=== PATIENT | male | born 1955 | race Caucasian/White ===

== ENCOUNTER 2023-02-10 08:44 | Day surgery (SDC) | payer OTHER, SELFPAY ==
[2023-02-07 14:49] VITALS: BMI 22.3
--- NOTE | 2023-02-09 09:58 | HO.ANESPROP2 ---
Documented by User: Daly Dang NP 02/09/23 09:58 HPI - Anesthesia Eval Consult details Narrative: 67yo M for Colonoscopy PMFSH Past Medical History Medical History Hx of melanoma of skin Renal cell carcinoma Back pain Diabetes Sleep apnea Gout COPD (chronic obstructive pulmonary disease) Hyperlipidemia GERD (gastroesophageal reflux disease) Surgical History Surgical History Hx of colectomy History of right nephrectomy Hx of oral surgery Hx of arthroscopy of left knee History of esophagogastroduodenoscopy (EGD) H/O colonoscopy Social History Social History (Updated 02/07/23 @ 14:44 by Sara Vuong RN) Patient Tobacco Use Status: Current everyday Tobacco user Tobacco use type: Cigarette Cigarettes Per Day: 30 Smoked in Last 30 Days: Yes Patient Interested in Nicotine Replacement: No Are you DNR?: No Advance Directives: No Advance Directives Information Provided: Yes Nutrition Risks: No Nutritional Risk Meds Allergies Allergy/AdvReac Type Severity Reaction Status Date / Time aspirin [ASA] Allergy Intermediate Nose Bleed Verified 02/10/23 09:10 tamsulosin Allergy Unknown Unknown Verified 02/10/23 09:10 Home Medications Medication Instructions Recorded Confirmed Last Taken Type albuterol sulfate 90 mcg/actuation 2 puff inhalation Q4-6H PRN 02/07/23 02/07/23 Unknown History aerosol inhaler (Ventolin HFA) Wheezing allopurinol 300 mg tablet 300 mg PO DAILY 02/07/23 02/07/23 Unknown History amlodipine 2.5 mg-benazepril 10 mg 1 cap PO DAILY 02/07/23 02/07/23 Unknown History capsule atenolol 100 mg tablet 100 mg PO DAILY 02/07/23 02/07/23 02/10/23 History cholecalciferol (vitamin D3) 50 50 mcg PO DAILY 02/07/23 02/07/23 Unknown History mcg (2,000 unit) tablet (Vitamin D3) cyclobenzaprine 10 mg tablet 10 mg PO BEDTIME PRN Muscle Spasm 02/07/23 02/07/23 Unknown History metformin 500 mg tablet 500 mg PO QPM 02/07/23 02/07/23 Unknown History multivitamin 1 tab PO DAILY 02/07/23 02/07/23 Unknown History omeprazole 20 mg capsule,delayed 20 mg PO DAILY 02/07/23 02/07/23 Unknown History release oxycodone-acetaminophen 5 mg-325 1 tab PO DAILY PRN Pain 02/07/23 02/07/23 Unknown History mg tablet (Percocet) rosuvastatin 40 mg tablet 40 mg PO DAILY 02/07/23 02/07/23 Unknown History Exam Exam Date and Time: February 09, 2023 0958 Height,Weight and Vital Signs: Height 5 ft 11 in Weight 72.575 kg Assessment and Plan Assessment Anesthesia Assessment: Chart Reviewed Documented by User: Brayan Dixon MD 02/10/23 09:26 [facility] Past Medical History Medical History Hx of melanoma of skin Renal cell carcinoma Back pain Diabetes Sleep apnea Gout COPD (chronic obstructive pulmonary disease) Hyperlipidemia GERD (gastroesophageal reflux disease) Family History Family history of problems with anesthesia: No Surgical History Surgical History Hx of colectomy History of right nephrectomy Hx of oral surgery Hx of arthroscopy of left knee History of esophagogastroduodenoscopy (EGD) H/O colonoscopy History of Problems with Anesthesia: No Social History Social History (Updated 02/07/23 @ 14:44 by Sara Vuong RN) Patient Tobacco Use Status: Current everyday Tobacco user Tobacco use type: Cigarette Cigarettes Per Day: 30 Smoked in Last 30 Days: Yes Patient Interested in Nicotine Replacement: No Are you DNR?: No Advance Directives: No Advance Directives Information Provided: Yes Nutrition Risks: No Nutritional Risk Meds Allergies Allergy/AdvReac Type Severity Reaction Status Date / Time aspirin [ASA] Allergy Intermediate Nose Bleed Verified 02/10/23 09:10 tamsulosin Allergy Unknown Unknown Verified 02/10/23 09:10 Home Medications Medication Instructions Recorded Confirmed Last Taken Type albuterol sulfate 90 mcg/actuation 2 puff inhalation Q4-6H PRN 02/07/23 02/07/23 Unknown History aerosol inhaler (Ventolin HFA) Wheezing allopurinol 300 mg tablet 300 mg PO DAILY 02/07/23 02/07/23 Unknown History amlodipine 2.5 mg-benazepril 10 mg 1 cap PO DAILY 02/07/23 02/07/23 Unknown History capsule atenolol 100 mg tablet 100 mg PO DAILY 02/07/23 02/07/23 02/10/23 History cholecalciferol (vitamin D3) 50 50 mcg PO DAILY 02/07/23 02/07/23 Unknown History mcg (2,000 unit) tablet (Vitamin D3) cyclobenzaprine 10 mg tablet 10 mg PO BEDTIME PRN Muscle Spasm 02/07/23 02/07/23 Unknown History metformin 500 mg tablet 500 mg PO QPM 02/07/23 02/07/23 Unknown History multivitamin 1 tab PO DAILY 02/07/23 02/07/23 Unknown History omeprazole 20 mg capsule,delayed 20 mg PO DAILY 02/07/23 02/07/23 Unknown History release oxycodone-acetaminophen 5 mg-325 1 tab PO DAILY PRN Pain 02/07/23 02/07/23 Unknown History mg tablet (Percocet) rosuvastatin 40 mg tablet 40 mg PO DAILY 02/07/23 02/07/23 Unknown History Exam Airway Mallampati Class: II TM Dist: >3cm Neck ROM: Full Denture: Upper and Lower Assessment and Plan Assessment Anesthesia Assessment: Anesthesia Plan Discussed Final Anesthetic Review Family History of Problems with Anesthesia: No History of Problems with Anesthesia: No NPO: Yes ASA Class: III Final Preanesthetic Review: No Changes in Pt Med Stat, Meds/Allgs Chart Reviewed, Consent Obtained/Reviewed and Anes Risks/Benef Reviewed Patient Risk: Intermediate Procedure Risk: Low Anesthetic Plan Anesthetic Plan: MAC: Disposition: Standard PACU
[2023-02-10] MEDS: Lactated Ringers 1,000 ML 100 ML IVCONT (09:23)
[2023-02-10 09:31] VITALS: BP 150/85; PULSE 68; RESP 18; TEMP 36.6; O2SAT 98
[2023-02-10 09:32] LABS: Glucose, Whole Blood 118 mg/dL (60-115)
[2023-02-10] MEDS: Albuterol Sulfate (0.083%) 2.5 MG/3 ML VIAL.NEB INHALE (09:34)
[2023-02-10 09:35] VITALS: RESP 18; O2SAT 96
--- NOTE | 2023-02-10 10:51 | MHC.SHP ---
Pre-Procedural Eval Section A Date of Service: 02/10/23 Section B Chief Complaint: Encounter for screening for malignant neoplasm of Details of Present Illness: see H&p NO CHANGES Relevant Family History (Specify if Yes): No Relevant Social History: None Present Medications: see Short Stay Collaborative assessment Medical History: No relevant PMH History of Previous Operations: Relevant previous surgery/procedure and date(s) Allergies: Allergies Allergy/AdvReac Type Severity Reaction Status Date / Time aspirin [ASA] Allergy Intermediate Nose Bleed Verified 02/10/23 09:10 tamsulosin Allergy Unknown Unknown Verified 02/10/23 09:10 Review of Systems Sugical H&P ROS: Negative: Constitution, Cardiovascular, Respiratory, Neurological, Psychiatric, Hem-Onc, Allergic/Immunologic, Gastrointestinal, Genitourinary, Musculoskeletal, Integumentary, Endocrine and Eyes/Ears/Nose/Throat Exam Surgical H&P Exam: Normal: HEENT, Normal: Heart, Normal: Lungs, Normal: Extremities, Normal: Abdomen, Normal: Skin and Normal: Neurological Plan Diagnosis/Plan: Unchanged I have reviewed the history and physical and performed a pertinent physical examination on my patient. No changes have occurred unless specified. Time Spent With Patient Time: Total time managing care of this patient today ____ minutes.
--- NOTE | 2023-02-10 10:52 | PM.OP ---
Brief Operative Note Date of Service: 02/10/23 Pre-op diagnosis: SCREENING Post-op diagnosis: same Procedure: COLONOSCOPY Surgeon: Bassam Ogden MD Anesthesia: MAC Was an Hydraulic Technician used for this Procedure?: No Estimated blood loss (mL): 3 Pathology: other Condition: stable Disposition: PACU
[2023-02-10 10:55] VITALS: BP 80/49; PULSE 68; RESP 16; TEMP 36.2; O2SAT 93
[2023-02-10 11:10] VITALS: BP 98/62; PULSE 64; RESP 18; TEMP 36.4; O2SAT 94
--- NOTE | 2023-02-10 11:17 | OP_ITS ---
DATE OF SERVICE: 02/10/2023 SURGEON: Bassam Ogden MD INDICATIONS: Colon cancer screening and prior history of colon polyps. PREOPERATIVE DIAGNOSIS: POSTOPERATIVE DIAGNOSIS: PROCEDURE PERFORMED: Colonoscopy to the neoterminal ileum with biopsy. ESTIMATED BLOOD LOSS: COMPLICATIONS: ANESTHESIA: Monitored anesthesia care. ASSISTANTS: SPECIMENS: DESCRIPTION OF PROCEDURE: History and physical performed. The risks and benefits of the procedure were explained to the patient. Informed consent was obtained. The patient is placed in the left lateral decubitus position. A digital rectal exam was performed and was found to be normal. The Olympus pediatric video colonoscope was introduced into the rectum and advanced to the ileocolonic anastomosis. Examination was performed. The scope was removed. He tolerated the procedure well and was taken to recovery room in stable condition. FINDINGS: The neoterminal ileum showed changes of ileitis, which could be reactive. There was no stricturing. There was no evidence of a mass. Biopsies were obtained from the ileum. The ileocolonic anastomosis was widely patent between 70 and 80 cm. There were some elizabeth visible at the anastomosis. The visualized colonic mucosa was otherwise within normal limits except in the rectum where there was less than 5 mm sessile polyp, which was removed with biopsy forceps. There was moderate diverticulosis of the sigmoid. The quality of prep was good. Retroflexed examination showed internal hemorrhoids. IMPRESSION: Colon polyp, ileitis. RECOMMENDATION: Follow up the biopsy results. MD PATTI Moreno/MICHELLEL / [id number]
== END 2023-02-10 11:23 | disposition home or self-care (01) ==
PROVIDERS: PCP Internal Medicine; Visit Provider Internal Medicine Gastroenterology
PROC: 0DJD8ZZ Inspection of Lower Intestinal Tract, Via Natural or Artificial Opening Endoscopic (ICD-10-PCS; CPT 45378; principal; 2023-02-10 10:20)
DX: Z12.11 Encounter for screening for malignant neoplasm of colon (principal); Z86.010 Personal history of colon polyps; R15.2 Fecal urgency; D12.8 Benign neoplasm of rectum; K57.30 Diverticulosis of large intestine without perforation or abscess without bleeding; K64.8 Other hemorrhoids; Z98.0 Intestinal bypass and anastomosis status; Z90.49 Acquired absence of other specified parts of digestive tract; K52.9 Noninfective gastroenteritis and colitis, unspecified; I10 Essential (primary) hypertension; K21.9 Gastro-esophageal reflux disease without esophagitis; E78.5 Hyperlipidemia, unspecified; E11.9 Type 2 diabetes mellitus without complications; J44.9 Chronic obstructive pulmonary disease, unspecified; M10.9 Gout, unspecified; G47.30 Sleep apnea, unspecified; Z85.528 Personal history of other malignant neoplasm of kidney; Z90.5 Acquired absence of kidney; Z85.820 Personal history of malignant melanoma of skin; Z79.84 Long term (current) use of oral hypoglycemic drugs; Z79.899 Other long term (current) drug therapy; F17.210 Nicotine dependence, cigarettes, uncomplicated
CPT/HCPCS: 45380; 82947; 88305; 94640